=== PATIENT | male | born 1945 | race Caucasian/White ===

== ENCOUNTER 2019-08-03 08:05 | Inpatient (IN) ==
[2019-07-29 11:23] LABS: Basophils # (Auto) 0 K/mcL (0.0-0.3); Basophils % (Auto) 0.3 % (0.0-2.0); Eosinophils # (Auto) 0.1 K/mcL (0.0-0.7); Eosinophils % (Auto) 1.1 % (0.0-7.0); Granulocytes % (Auto) 82.8 % (38.0-78.0); Hematocrit 47.5 % (41.0-55.0); Hemoglobin 16.4 g/dL (13.5-16.5); Lymphocytes # (Auto) 0.7 K/mcL (1.5-4.8); Lymphocytes % (Auto) 6.4 % (15.5-49.0); Mean Cell Volume 100.8 fL (80.0-100.0); Mean Corpuscular HGB Conc 34.4 g/dL (31.0-36.0); Mean Platelet Volume 8.7 fL (7.4-10.4); Monocytes % (Auto) 9.4 % (1.0-12.0); Platelet Count 260 K/mcL (140-440); RBC 4.72 M/mcL (4.50-5.90); Red Cell Distribution Width 13.4 % (11.5-14.5); WBC 10.3 K/mcL (4.5-11.0)
[2019-07-29 11:25] LABS: Blood Urea Nitrogen 12 mg/dl (8-23); Calcium 9.3 mg/dl (8.6-10.4); Carbon Dioxide 27 mmol/L (22-30); Glomerular Filtration Rate 92; Glucose 93 mg/dL (70-105)
[2019-07-29 11:26] LABS: Chloride 90 mmol/L (96-108)
[2019-07-29 12:27] LABS: Appearance,Urine CLEAR; Bilirubin,Urine NEG (NEG); Color,Urine YELLOW; Culture Indicated,Urine NO; Glucose,Urine (UA) NEGATIVE (NEG); Ketones,Urine NEG (NEG); Leukocyte Esterase,Urine NEG /uL (NEG); Nitrate,Urine NEG (NEG); Protein,Urine NEG (NEG); Specific Gravity,Urine 1.012 (1.000-1.035); Urine Blood NEG mg/dL (<0.03); Urobilinogen,Urine NEG (NEG)
[~2019-08-03 08:05] MED LIST: 0.9 % SODIUM CHLORIDE 9 ML, KETOROLAC 30 MG, ROPIVACAINE HCL/PF 49.5 ML, EPINEPHrine 0.... IJ SCH; ACETAMINOPHEN 500 MG TABLET PO SCH; CELECOXIB 200 MG CAPSULE PO SCH; GABAPENTIN 400 MG CAPSULE PO SCH; ceFAZolin 2 GM in DEXTROSE 5% IN WATER 50 ML IV SCH; oxyCODONE 10 MG TAB.ER.12H PO SCH
[2019-08-03 08:34] LABS: POC Blood Urea Nitrogen 22 mg/dl (8-23); POC CO2 27 mmol/L (22-30); POC Calcium, Ionized 1.17 mmol/L (1.16-1.32); POC Chloride 97 mmol/L (96-108); POC Creatinine 0.8 mg/dl (0.7-1.2); POC Glucose, Random 81 mg/dL (70-105); POC Potassium 4.8 mmol/L (3.3-5.1); POC Sodium 131 mmol/L (133-145)
[2019-08-03] MEDS ORDERED: IPRATROPIUM/ALBUTEROL 3 ML AMPUL.NEB NEB PRN ×2 (10:00→15:28)
[2019-08-03] MEDS ORDERED: SCOPOLAMINE 1 PATCH PATCH TOPICAL PRN (10:00)
[2019-08-03] MEDS ORDERED: GENTAMICIN SULFATE 800 MG/20 ML VIAL IR ONE (10:48)
[2019-08-03] MEDS ORDERED: HYDROmorphone 2 MG/ML VIAL IV PRN (14:54)
[2019-08-03] MEDS ORDERED: BENZOCAINE/MENTHOL 1 LOZENGE PO PRN ×2 (14:54→15:28)
[2019-08-03] MEDS ORDERED: MAGNESIUM HYDROXIDE 30 ML ORAL.SUSP PO PRN (14:54)
[2019-08-03] MEDS ORDERED: TRANEXAMIC ACID 1,000 MG/10 ML VIAL IV SCH (14:54)
[2019-08-03] MEDS ORDERED: FLEETS ADULT ENEMA PR PRN (14:54)
[2019-08-03] MEDS ORDERED: ACETAMINOPHEN 325 MG TABLET PO PRN (14:54)
[2019-08-03] MEDS ORDERED: POLYETHYLENE GLYCOL 3350 17 GM PACKET PO PRN (14:54)
[2019-08-03] MEDS ORDERED: BISACODYL 10 MG SUPP.RECT PR PRN (14:54)
[2019-08-03] MEDS ORDERED: ONDANSETRON 4 MG/2 ML VIAL IV PRN ×2 (14:54→15:28)
--- NOTE | 2019-08-03 14:54 | Brief Operative Note ---
Date of procedure: 08/03/19 Pre-op diagnosis: Left knee adhesions and loosened ligaments Post-op diagnosis: same Procedure: Left tka revision one component tibial liner and open synovectomy Grafts/Implants: Yes Anesthesia: ESSIE Surgeon: Kwaku Carey Activities Concierge: Ramírez Escoto Estimated blood loss (cc): 20 Tourniquet Time (Minutes): 40 Specimens Removed/Pathology: none sent Condition: stable Disposition: PACU
--- NOTE | 2019-08-03 15:27 | Operative Note ---
DATE OF OPERATION: 08/03/2019 PREOPERATIVE DIAGNOSIS: Left knee adhesions with loosening ligaments in extension. POSTOPERATIVE DIAGNOSIS: Left knee adhesions with loosening ligaments in extension. PROCEDURE: Left total knee revision, replacing the poly liner with a 3 mm thicker liner to stabilize the knee with lysis of adhesions both in the back of his knee and medial and lateral gutters as well as posteriorly with a complete synovectomy. SURGEON: Kwaku Carey MD FAMILY PRACTITIONER: Ramírez Escoto PA-C. This provider's expertise and technical skill were required throughout the case. The DOT assisted with preoperative coordination, intraoperative retraction, wound closure, dressing and splint application, as well as postoperative documentation and care coordination. ANESTHESIA: General LMA anesthesia. COMPLICATIONS: None. TOURNIQUET TIME: Less than 40 minutes. ESTIMATED BLOOD LOSS: Less than 20 mL COMPLICATIONS: None. DESCRIPTION OF PROCEDURE: The patient was brought to the operating room and put to sleep with general LMA anesthesia. Once asleep, the patient had the left leg sterilely prepped and draped in the usual sterile fashion. A timeout was performed and we confirmed this as the operative site by initials, consent form and x-rays. Once this was done, we then placed Ioban over the skin and exsanguinated the leg and inflated the tourniquet to 250 pounds of pressure. Pre-op antibiotics were given. Tranexamic acid given. Once this was confirmed, we then made a midline incision through his prior scar. We elevated the soft tissue and then we entered the capsule, removing Ethibond sutures from the skin and opening the capsule. There was very thick lining to the joint as well as a lot of synovitis. A complete synovectomy in the medial lateral gutters were recreated. We subluxed the patella laterally, making sure, there was no scar tissue holding the quad tendon in place. We then released the poly liner, trialed the size 11 and 12. This 12 was 3 mm thicker than his prior liner and seemed to fit very nicely, both in flexion and extension. We released the scar tissue in the posterior joint with an osteotome, irrigated and injected the posterior capsule with 50 mL of 0.5% Marcaine as well as morphine added to this with 50 mL in the anterior compartment of the soft tissue. Once this was done, we then placed the final implant. This is stable. We took the knee through full range of motion achieving about 120 degrees of flexion on a fairly consistent basis. With the patellar tracking to the side it had full bend easily. The flexion was being blocked by the extensor mechanism and contracture. We rechecked for any scar tissue and adhesions. These were released. We irrigated thoroughly and then closed the capsule after deflating the tourniquet about 40 minutes. We repaired the capsule with #1 Stratafix x2, closed the skin was Stratafix and adhesive closure. The patient tolerated this well without complication. Blood loss was about 20 mL [email or web address] Job ID: [id number] Doc ID: [id number] Kwaku Carey MD
[2019-08-03] MEDS ORDERED: METHOCARBAMOL 1,000 MG/10 ML VIAL IV PRN (15:28)
[2019-08-03] MEDS ORDERED: LABETALOL 5 MG/ML ML IV PRN (15:28)
[2019-08-03] MEDS ORDERED: FLUMAZENIL 0.1 MG/ML ML IV PRN (15:28)
[2019-08-03] MEDS ORDERED: METOPROLOL TARTRATE 5 MG/5 ML VIAL IV PRN (15:28)
[2019-08-03] MEDS ORDERED: fentaNYL 100 MCG/2 ML VIAL IV PRN (15:28)
[2019-08-03] MEDS ORDERED: NALOXONE HCL 0.4 MG/ML VIAL IV PRN (15:28)
[2019-08-03] MEDS ORDERED: LACTATED RINGERS 1,000 ML IV SCH (15:30)
--- NOTE | 2019-08-03 16:28 | XRay Report ---
CLINICAL INFORMATION: Post-Op Total Knee COMPARISON: 01/03/2015 FINDINGS: Total knee prosthesis is anatomically aligned. No osseous abnormality. Soft tissue swelling IMPRESSION: Negative Interpreted and Authenticated by: Marc Tai 08/03/19
[2019-08-03] MEDS: LACTATED RINGERS 1,000 ML IV SCH (16:41)
[2019-08-03] MEDS: KETOROLAC 15 MG/ML VIAL IV SCH (17:54)
[2019-08-03] MEDS: oxyCODONE HCL 5 MG TABLET PO PRN ×2 (17:58→21:52)
[2019-08-03] MEDS: DOCUSATE SODIUM 100 MG CAPSULE PO SCH (20:57)
[2019-08-03] MEDS: ASPIRIN 325 MG ENTERIC COATED TABLET PO SCH (20:57)
[2019-08-03] MEDS: ceFAZolin 1 GM VIAL IV SCH (20:58)
[2019-08-03] MEDS ORDERED: TEMAZEPAM 15 MG CAPSULE PO PRN (21:00)
[2019-08-03] MEDS ORDERED: GABAPENTIN 300 MG CAPSULE PO SCH (21:00)
[2019-08-03] MEDS ORDERED: SENNOSIDES 1 TABLET PO SCH (21:00)
[2019-08-03] MEDS ORDERED: DOXAZOSIN 4 MG TABLET PO SCH (21:00)
[2019-08-03] MEDS: 0.9 % SODIUM CHLORIDE 10 ML SYRINGE IV SCH (21:03)
[2019-08-04] MEDS: KETOROLAC 15 MG/ML VIAL IV SCH ×3 (00:22→12:35)
[2019-08-04] MEDS: LACTATED RINGERS 1,000 ML IV SCH (04:26)
[2019-08-04] MEDS: oxyCODONE HCL 5 MG TABLET PO PRN ×3 (04:29→12:36)
[2019-08-04] MEDS: ceFAZolin 1 GM VIAL IV SCH (05:20)
[2019-08-04] MEDS: 0.9 % SODIUM CHLORIDE 10 ML SYRINGE IV SCH (05:20)
--- NOTE | 2019-08-04 07:28 | Orthopedic Progress Note ---
Subjective Patient information: Note initiated : 08/04/19 at 7:27 am Service Date, if different from initiated Date: [] Patient: Mario Fernandez 74 y/o M admitted on 08/03/19 for Left Total Knee Arthroplasty Revision. Chief Complaint: [Pt is stable this morning on post operative day 1 without any significant concerns or complaints. Patients vital signs have remained stable. Patients dressing is dry and is grossly intact from a neurovascular and motor standpoint. Patients 10 point ROS is otherwise negative. ] Objective Vital signs: Vital Signs Temp Pulse Resp BP Pulse Ox 08/04/19 06:51 98.1 F 93 H 16 128/69 98 08/04/19 03:15 97.5 F 61 18 117/62 94 08/04/19 00:05 97.7 F 95 H 18 116/75 97 08/03/19 21:06 84 08/03/19 19:00 98.7 F 84 18 141/79 97 08/03/19 18:00 97.5 F 101 H 18 139/82 96 08/03/19 17:25 89 16 147/90 98 08/03/19 16:55 66 16 168/83 96 08/03/19 16:25 60 16 170/88 98 08/03/19 16:10 97.8 F 61 16 166/83 96 08/03/19 15:48 98.2 F 74 15 159/81 99 08/03/19 15:33 97.3 F 62 11 L 141/66 99 08/03/19 15:28 65 12 133/62 99 08/03/19 15:23 69 13 127/63 99 08/03/19 15:18 97.9 F 70 15 107/61 98 08/03/19 08:00 98.6 F 69 16 180/85 99 Intake and Output 08/03/19 08/04/19 08/04/19 21:59 05:59 13:59 Intake Total 2220 1200 Output Total 830 300 180 Balance 1390 900 -180 Intake: IV 1500 Lactated Ringers 1,000 ml @ 20 1500 mls/hr IV .Q24H [facility] Rx#: [id number] Oral 720 1200 Output: Urine Catheter Amount 500 Void Amount 300 300 180 Estimated Blood Loss 30 Other: Meal Dinner Percent of Meal Consumed 100% Feeding Ability Independent Urine Appearance Clear Clear Clear Urine Color Bright Yellow Dark Yellow Dark Yellow Urine Odor Normal Strong Normal Weight 176 lb 14.4 oz Intake & Output: Intake & Output 08/03/19 08/04/19 08/04/19 21:59 05:59 13:59 Intake Total 2220 1200 Output Total 830 300 180 Balance 1390 900 -180 Weight 176 lb 14.4 oz Intake: IV 1500 Lactated Ringers 1,000 ml @ 20 1500 mls/hr IV .Q24H [facility] Rx#: [id number] Oral 720 1200 Output: Urine Catheter Amount 500 Void Amount 300 300 180 Estimated Blood Loss 30 Other: Meal Dinner Percent of Meal Consumed 100% Feeding Ability Independent Urine Appearance Clear Clear Clear Urine Color Bright Yellow Dark Yellow Dark Yellow Urine Odor Normal Strong Normal Incision: Yes healing Incision clean and dry: Yes Dressing: Yes clean Weight bearing status: full Neurological exam IM: Yes motor sensory intact, Yes neurovascular intact Extremities exam IM: Yes Foot pink and warm, Yes neurovascular intact - Labs CBC & BMP: 08/04/19 04:20 07/29/19 08:06 Labs: 08/04/19 07/29/19 04:20 08:06 Hgb 16.4 Hct 40.9 L 47.5 Assessment and Plan (1) History of revision of total knee arthroplasty The patient has been educated regarding dressing care, Physical Therapy recommendations, home exercises, restrictions, and follow up appointments. The patient has had all necessary DME prescribed. The patient has remained relatively stable during their hospital course. Leave Dermabond patch intact until followup Status: Acute
[2019-08-04] MEDS ORDERED: OMEPRAZOLE 20 MG CAPSULE PO SCH (07:30)
--- NOTE | 2019-08-04 07:30 | Discharge Summary ---
Ortho Discharge - TKA - Patient Instructions Diet: Regular Diet Activity: activity as tolerated, weight bearing as tolerated Total Knee Protocol: For Total Knee: Start ROM RENNY with stationary bike or rocking chair. Work on gaining full extension of knee. Posterior dislocation precautions provided. Hip abductor strengthening and gait training instructions provided. Apply Cryocuff as instructed. Dressing Care: May shower in 2 days - Problem Maintenance (1) History of revision of total knee arthroplasty Status: Acute - Follow Up Plan Disposition: Home, Self-Care Prognosis: Good Rehab Potential: Good I certify that the patient requires SNF services: No Overall status at discharge: patient is progressing back to baseline - Orders For Discharge Prescriptions: Docusate Sodium [Colace] 100 mg PO BID #60 cap Transmission Status: Pending to [facility] 2005 Aspirin [Ecotrin] 325 mg PO BID #60 tab.ec Transmission Status: Pending to [facility] 2005 oxyCODONE HCL [Roxicodone] 1 - 2 tab PO Q4HP PRN #75 tab PRN Reason: Pain Level 3-6 Prescription Printed
[2019-08-04] MEDS ORDERED: GABAPENTIN 400 MG CAPSULE PO SCH (09:00)
[2019-08-04] MEDS ORDERED: MULTIVIT,THER IRON,CA,FA & MIN 1 TABLET PO SCH (09:00)
[2019-08-04] MEDS ORDERED: LISINOPRIL 20 MG TABLET PO SCH (09:00)
[2019-08-04] MEDS ORDERED: MAGNESIUM OXIDE 400 MG TABLET PO SCH (09:00)
[2019-08-04] MEDS ORDERED: FINASTERIDE 5 MG TABLET PO SCH (09:00)
[2019-08-04] MEDS: ASPIRIN 325 MG ENTERIC COATED TABLET PO SCH (09:50)
[2019-08-04] MEDS: DOCUSATE SODIUM 100 MG CAPSULE PO SCH (09:50)
[2019-08-04] MEDS ORDERED: KETAMINE 100 MG/ML ML IV ONE (13:55)
[2019-08-04] MEDS ORDERED: ONDANSETRON 4 MG/2 ML VIAL IV ONE (13:55)
[2019-08-04] MEDS ORDERED: PHENYLEPHRINE 10 MG/ML VIAL IV ONE (13:55)
[2019-08-04] MEDS ORDERED: ROPIVACAINE HCL/PF 20 ML VIAL IJ ONE (13:55)
[2019-08-04] MEDS ORDERED: TRANEXAMIC ACID 1,000 MG/10 ML VIAL IV ONE (13:55)
[2019-08-04] MEDS ORDERED: DEXAMETHASONE 10 MG/ML VIAL IV ONE (13:55)
[2019-08-04] MEDS ORDERED: GLYCOPYRROLATE 0.2 MG/ML VIAL IV ONE (13:55)
[2019-08-04] MEDS ORDERED: fentaNYL 250 MCG/5 ML VIAL IV ONE (13:55)
[2019-08-04] MEDS ORDERED: MIDAZOLAM 2 MG/2 ML VIAL IV ONE (13:55)
[2019-08-04] MEDS ORDERED: PROPOFOL 200 MG/20 ML VIAL IV ONE (13:55)
== END 2019-08-04 13:30 | disposition home or self-care (01) | DRG 489 ==
LOC: MEDSUR 08:05
PROVIDERS: ADMIT Orthopaedic Surgery; ATTEND Orthopaedic Surgery